=== PATIENT | female | born 1995 | race African-American/Black ===

== ENCOUNTER 2025-02-12 16:35 | Emergency (ER) | payer OTHER, MEDICAID ==
[~2025-02-12] VITALS: Ht 167.6 cm; Wt 50.0 kg
[2025-02-12 16:37] VITALS: O2SAT 99
[2025-02-12] MEDS: SODIUM CHLORIDE 0.9% 1,000 ML IV ONE (17:24)
[2025-02-12 17:33] LABS: BASOPHILS % 0.5 % (0.0-2.0); EOSINOPHILS % 1.2 % (0.0-5.0); HEMATOCRIT. 39.8 % (36.0-48.0); HEMOGLOBIN. 13.6 g/dL (12.0-16.0); LYMPHOCYTES % 24.5 % (20.0-50.0); MEAN PLATELET VOLUME 8.1 fl (7.4-10.4); MONOCYTES % 6.8 % (2.0-8.0); NEUTROPHILS % 67.0 % (40.0-76.0); PLATELET 267 x1000/uL (130-400); RED BLOOD CELL COUNT 4.29 mill/uL (4.2-5.4); RED CELL DISTRIBUTION WIDTH 13.3 % (11.6-14.6)
[2025-02-12 17:48] LABS: CREATININE 0.8 mg/dL (0.6-1.0); UREA NITROGEN BLOOD 5 mg/dL (9-23)
[2025-02-12 17:49] LABS: TROPONIN I HIGH SENSITIVITY < 4 ng/L (3.0-34)
[2025-02-12 17:51] LABS: HCG SCREEN NEGATIVE
[2025-02-12 18:48] VITALS: BP 117/68; PULSE 86; RESP 14; TEMP 36.6; O2SAT 99
== END 2025-02-12 19:11 | disposition home or self-care (01) ==
LOC: ER 16:35
DX: R56.9 Unspecified convulsions (principal); R55 Syncope and collapse; V89.2XXA Person injured in unspecified motor-vehicle accident, traffic, initial encounter; Y93.89 Activity, other specified; Y92.410 Unspecified street and highway as the place of occurrence of the external cause; Y99.8 Other external cause status
CPT/HCPCS: 80048; 80320; 84703; 85025; 84484; 36415; 71045; 70450; 93005; 96360; 99285; J7030; G0480